=== PATIENT | female | born 1940 | race Caucasian/White ===

== ENCOUNTER 2023-04-20 21:43 | Observation (INO) | payer MEDICARE, BC, SELFPAY ==
[2023-04-20] VITALS (8 sets, daily range): BP systolic 109–120; BP diastolic 52–87; PULSE 67–76; RESP 16–24; TEMP 36.6–36.8; O2SAT 95–100; BMI 26.3
--- NOTE | 2023-04-20 21:44 | CT_ITS ---
We are attempting to reach an attending provider to discuss findings. An addendum with communication details will be sent when the communication is complete. INDICATION: Neuro deficit, acute, stroke suspected EXAMINATION: CT BRAIN - CT Head Stroke Protocol W/O Contrast Injection TECHNIQUE: Multiple axial images were obtained of the head without intravenous contrast. A radiation dose optimization technique was used for this scan. IV Contrast dosage and agent: None. COMPARISON: FINDINGS: BRAIN PARENCHYMA: No intra- or extra-axial hemorrhage. No evidence of acute infarct. No intracranial mass or mass effect. Bilateral white matter microangiopathic ischemic changes. Posterior fossa structures are unremarkable. CSF SPACES: Prominent with atrophy. No hydrocephalus. Basal cisterns are patent. CALVARIUM, SKULL BASE, PARANASAL SINUSES AND MASTOID AIR CELLS: Clear. No discrete lytic or blastic abnormalities. ORBITS: Both globes, extraocular muscles, optic nerves and retrobulbar fat appear unremarkable. CT/STROKE Brain/Head without Cont IMPRESSION: Age-related changes. Electronically Signed: Yohan Kyle DO at 22:07 EDT Reading Location ID and State: [facility] / [place] Tel [phone], Service support ,
--- NOTE | 2023-04-20 21:44 | EKG12_ITS ---
Test Reason : STROKE Blood Pressure : / mmHG Vent. Rate : 063 BPM Atrial Rate : 063 BPM P-R Int : 142 ms QRS Dur : 082 ms QT Int : 432 ms P-R-T Axes : 072 056 043 degrees QTc Int : 442 ms Normal sinus rhythm Normal ECG No previous ECGs available Confirmed by BRUCE QUARLES, CLAIR ([id number]), editorial director SIMI LUCERO ([id number]) on 04/25/2023 10:26:53 AM Referred By: Confirmed By:CLAIR BARRERA MD
--- NOTE | 2023-04-20 21:45 | ED.RN ---
phone call to [facility] at this time
--- NOTE | 2023-04-20 21:46 | ED.VIS.STROK ---
HPI History of Present Illness Chief Complaint: Stroke Alert Narrative Narrative: 82-year-old female with history of TIA presenting with strokelike symptoms. Team was called in the field. Last known well 2109. Patient had slurred speech and left arm numbness. For EMS she had some slurred speech as well. On presentation she has an NIH stroke score of 0. Denies any chest pain or shortness of breath. Family reported to EMS that she was on a blood thinner but they did not get which kind of blood thinner she is on. [facility] Medical History Stroke/cerebrovascular accident Home Medications atorvastatin 40 mg tablet 40 mg PO QHS 04/20/23 [History Last Taken Unknown] clopidogrel 75 mg tablet (Plavix) 75 mg PO DAILY 04/20/23 [History Last Taken Unknown] cyanocobalamin (vitamin B-12) 1,000 mcg/mL injection solution 1,000 mcg IM DAILY 04/20/23 [History Last Taken Unknown] donepezil 10 mg tablet 10 mg PO DAILY 04/20/23 [History Last Taken Unknown] memantine .ROUTE BID 04/20/23 [History Last Taken Unknown] mirtazapine 15 mg tablet 15 mg PO DAILY 04/20/23 [History Last Taken Unknown] Allergy/AdvReac Type Severity Reaction Status Date / Time No Known Allergies Allergy Verified 04/20/23 22:15 Family History (Updated 04/20/23 @ 23:[address] Darren Mercer MD) Other Cancer Prostate cancer Surgical History (Updated 04/20/23 @ 23:[address] Darren Mercer MD) H/O lumpectomy History of appendectomy Social History Smoking Status: Never smoker ROS ROS ED Review of Systems ROS Unobtainable: Denies due to encephalopathy Constitutional Constitutional ED: Denies chills or fever(s) Eyes Eyes: Denies blurry vision or change in vision ENT ENT ED: Denies rhinorrhea Cardiovascular Cardiovascular: Denies chest pain or palpitations Respiratory/Chest Respiratory/Chest: Denies cough or dyspnea Gastrointestinal Gastrointestinal: Denies abdominal pain Genitourinary Genitourinary ED: Denies dysuria or hematuria Musculoskeletal Musculoskeletal: Denies arthralgias Neurologic Neurologic: Reports paresthesias LUE and other Details: Speech, facial EXAM Physical Exam Const Vital Signs: 04/20/23 21:57 04/20/23 21:44 04/20/23 21:44 Temperature 98.3 F Temperature Source Oral Pulse Rate 71 Respiratory Rate 24 H Blood Pressure 120/58 L Blood Pressure Mean 78 Pulse Ox 95 100 Oxygen Delivery Method Room Air Room Air 04/20/23 22:10 04/20/23 21:44 04/20/23 22:30 Temperature 98.1 F Temperature Source Oral Pulse Rate 68 68 76 Respiratory Rate 16 16 16 Blood Pressure 115/57 L 120/80 114/59 L Blood Pressure Mean 76 93 77 Pulse Ox 100 96 Oxygen Delivery Method Room Air Room Air Room Air 04/20/23 23:00 04/20/23 23:00 Temperature 98.1 F 98.1 F Temperature Source Oral Oral Pulse Rate 68 67 Respiratory Rate 16 16 Blood Pressure 120/87 H 120/87 H Blood Pressure Mean 98 98 Pulse Ox 100 99 Oxygen Delivery Method Room Air Room Air Positive well nourished HEENT Reports moist mucous membranes Eyes PERRL and EOMs intact bilaterally Resp normal respiratory effort and clear to auscultation bilaterally Auscultation: Negative for rales, rhonchi or wheezes Cardio Rate: regular rate Neuro oriented x3 and CN's II-XII intact bilaterally Sensorium / Orientation: alert Psych mental status grossly normal NIHSS NIHSS Initial: 1a Level of Consciousness: 0 1b LOC Questions (Score 2 if aphasic/stupor): 0 1c LOC Commands (Only score 1st attempt): 0 2 Best Gaze (If aphasic, use reflexive mvmts.): 0 3 Visual: 0 4 Facial Palsy: 0 5 Motor Arm Right (UN = amputation/fusion): 0 5 Motor Arm Left: 0 6 Motor Leg Right: 0 6 Motor Leg Left: 0 7 Limb ataxia (Only + if out of proportion): 0 8 Sensory (Aphasia/stupor=0 or 1, coma=2): 0 9 Best Language: 0 10 Dysarthria (mute, coma=2, intubated=UN): 0 11 Extinction and Inattention (only scored if +): 0 Total Score: 0 MDM MDM MDM Narrative Medical decision making narrative: 82-year-old female with strokelike symptoms. Her in a stroke scale score is 0 and arrival although she had reported facial droop, slurred speech, left arm numbness. I am not sure which side of her face was drooping at home. Differential includes stroke, TIA, intracranial hemorrhage, dehydration, electrolyte abnormalities, acute coronary syndrome. CBC was obtained to assess white blood cell count, hemoglobin, platelets. BMP to assess renal function electrolytes. High-sensitivity troponin EKG to rule out ischemia or dysrhythmia. Chest x-ray to rule out pneumonia. CT brain and CTA were obtained in the ER. CT brain and CTA were negative. CBC and BMP were normal. INR normal. EKG on my interpretation showed normal sinus rhythm with a ventricular rate of 63 bpm without sign of ischemic change or ectopy on my interpretation. Chest x-ray showed no acute process on my interpretation. Discussed the patient with [facility] neurology and they recommended admission for stroke rule out patient amenable to this. She was given aspirin on admission. Impression: 1. TIA Lab Data Labs: Laboratory Results - last 24 hr 04/20/23 21:50 WBC 6.8 RBC 3.37 L Hgb 10.6 L Hct 32.0 L MCV 95.0 MCH 31.5 MCHC 33.1 RDW Std Deviation 44.6 H RDW Coeff of Carissa 13.0 Plt Count 170 MPV 9.3 Immature Gran % (Auto) 0.300 Neut % (Auto) 57.1 Lymph % (Auto) 29.2 [place] % (Auto) 12.1 H Eos % (Auto) 1.0 Baso % (Auto) 0.3 Absolute Neuts (auto) 3.9 Absolute Lymphs (auto) 1.98 Nucleated RBC % 0 PT 13.7 INR 1.1 APTT 31.2 Sodium 137 Potassium 3.9 Chloride 107 Carbon Dioxide 28.0 Anion Gap 2 L BUN 11 Creatinine 0.62 Estim Creat Clear Calc 32.23 Est GFR (MDRD) Af Amer 118 Est GFR (MDRD) Non-Af 97 BUN/Creatinine Ratio 17.6 Glucose 104 Calcium 8.6 Troponin I High Sens 5 Radiography Diagnostic Testing: Clinical Impression(s) from Imaging Studies Brain CT 04/20/23 21:44 IMPRESSION: Age-related changes. Electronically Signed: Yohan Kyle DO at 22:07 EDT Reading Location ID and State: [facility] / [place] Tel [phone], Service support , ADDENDUM: 04/20/23 2214 IMPRESSION: Age-related changes. N.B. : The above Results were Read Back by Yohan Kyle DO to Bruno Steinberg MD, and understanding confirmed on 04/20/2023 22:07:55 (ET). Electronically Signed: Yohan Kyle DO at 22:07 EDT , Head/Neck CTA 04/20/23 21:50 IMPRESSION: Negative CTA Carotid, and CTA Brain. Electronically Signed: Yohan Kyle DO at 22:22 EDT , ADDENDUM: 04/20/23 2230 IMPRESSION: Negative CTA Carotid, and CTA Brain. N.B. : The above Results were Read Back by Yohan Kyle DO to Bruno Steinberg MD, and understanding confirmed on 04/20/2023 22:23:58 (ET). Electronically Signed: Yohan Kyle DO at 22:22 EDT , Discharge Plan Triage Chief Complaint: Stroke Alert ED Provider: Bruno Steinberg Dx/Rx/DC Orders Primary Care Provider: RIO DUKE
--- NOTE | 2023-04-20 21:50 | CT_ITS ---
We are attempting to reach an attending provider to discuss findings. An addendum with communication details will be sent when the communication is complete. INDICATION: Neuro deficit, acute, stroke suspected EXAMINATION: CTA BRAIN WITH CONTRAST TECHNIQUE: Noncontrast axial images were obtained of the brain. Subsequently, routine carotid CT angiogram protocol was performed without and with IV contrast. In addition, images were obtained of the [place]. NASCET criteria using the distal ICAs for comparison were used for evaluation of stenoses. 3D reconstructions were reviewed. A radiation dose optimization technique was used for this scan. IV Contrast dosage and agent: COMPARISON: FINDINGS: --CTA NECK: AORTIC ARCH AND BRANCHES: Normal anatomy, patent. RIGHT CCA: No occlusion, significant stenosis or dissection. RIGHT ICA: No occlusion, significant stenosis or dissection. LEFT CCA: No occlusion, significant stenosis or dissection. LEFT ICA: No occlusion, significant stenosis or dissection. RIGHT VERTEBRAL ARTERY: No occlusion, significant stenosis or dissection. LEFT VERTEBRAL ARTERY: No occlusion, significant stenosis or dissection. NECK SOFT TISSUES: Unremarkable. --CTA HEAD: --Anterior circulation: ICAs: No significant stenosis at the intracranial/visualized segments. ACAs: No significant stenosis at the visualized segments. ACOM: Present. MCAs: No significant stenosis at the visualized segments. --Posterior circulation: PCOMs: Patent bilaterally. urban renewal manager: No significant stenosis at the visualized segments. Nonvisualization of the right P1 segment. BASILAR ARTERY: No significant stenosis. VERTEBRAL ARTERIES: No significant stenosis at the intradural/visualized segments. No evidence of intracranial aneurysm or vascular malformation. CT/STROKE CTA Head AND Neck W/Con IMPRESSION: Negative CTA Carotid, and CTA Brain. Electronically Signed: Yohan Kyle DO at 22:22 EDT ,
[2023-04-20 22:06] LABS: Absolute Lymphocyte Count 1.98 X10^3/uL (0.83-4.51); Absolute Neutrophil Count 3.9 X10^3/uL (2.0-7.7); Basophil# 0.02 X10^3/uL; Basophil% 0.3 % (0-1); Eosinophil# 0.07 X10^3/uL; Hemoglobin 10.6 g/dL (12.0-15.0); Lymphocyte # 1.98 X10^3/ul (0.83-4.51); Lymphocyte % 29.2 % (19-41); Mean Corp Hgb Conc 33.1 g/dL (32-36); Mean Corpuscular Hgb 31.5 pg (27.0-32.0); Mean Platelet Vol. 9.3 fl (6.2-12.0); Monocyte# 0.82 X10^3/uL; Monocyte% 12.1 % (0-10); NRBC Flagged by Analyzer 0 % (0-5); Neutrophil # 3.87 X10^3/uL (2.7-7.7); Neutrophil % 57.1 % (47-70); Platelet Count 170 K/mm3 (150-450); RBC Distribution Width SD 44.6 fl (35.1-43.9); Red Blood Count 3.37 M/mm3 (4.2-5.4); White Blood Count 6.8 K/mm3 (4.4-11.0)
[2023-04-20 22:19] LABS: International Normalized Ratio 1.1; Prothrombin Time (Protime)PT. 13.7 SECONDS (11.7-14.9)
[2023-04-20 22:20] LABS: Partial Thromboplast Time 31.2 Seconds (24.1-36.2)
[2023-04-20 22:28] LABS: Anion Gap 2 (5-15); BUN 11 mg/dL (7-18); BUN/Creat Ratio 17.6 RATIO (10-20); Calcium,Total 8.6 mg/dL (8.5-10.1); Chloride 107 mmol/L (98-107); Creatinine, Serum 0.62 mg/dL (0.55-1.02); EST Glomerular Filtration Rate 97 mL/min (>60); Est Glom Filt Rate - Afr Amer 118 mL/min (>60); Estimated Creatinine Clearance 32.23 ml/min; Glucose 104 mg/dL (74-106); Potassium 3.9 mmol/L (3.5-5.1); Sodium Level 137 mmol/L (136-145); Troponin-I HS 5 pg/mL (3.0-54.0)
--- NOTE | 2023-04-20 22:50 | RAD_ITS ---
INDICATION: Neuro deficit, acute, stroke suspected EXAMINATION/TECHNIQUE: X-RAY - XR Chest 1 View COMPARISON: FINDINGS: LINES/DEVICES: None. LUNGS: No consolidation, edema or effusion. No pneumothorax. MEDIASTINUM AND CARDIOVASCULAR STRUCTURES: Cardiac silhouette not enlarged. Central airways and mediastinal contour are unremarkable. BONES AND SOFT TISSUES: Unremarkable. RAD/Chest 1 View IMPRESSION: No radiographic evidence of acute cardiopulmonary disease. Electronically Signed: Yohan Kyle DO at 23:53 EDT ,
[2023-04-20] MEDS: Aspirin 81 MG TAB.CHEW 324 MG PO (23:16)
--- NOTE | 2023-04-20 23:16 | PCM.HP.STD ---
HPI - General General Date of Admission: 04/20/23 Date of Service: 04/20/23 Chief Complaint: Strokelike symptoms HPI Narrative MAGDALENA PELAYO, is a 82 F with a significant history of a TIA on Plavix; brain bleed; and dementia who presents to emergency department with strokelike symptoms lasted about 30 to 45-minute before presentation. Enroute to emergency department stroke alert was called. Patient strokelike symptoms included slurry speech; facial droop and left numbness. Also patient had left side weakness where she was leaning towards the left side. Reportedly paramedics saw patient's symptoms. At the emergency department patient NIH was reportedly 0. At the time of hospitalist evaluation patient reported that she still has some numbness to her left. Patient lives partly at [facility] with one of his sons and then partly at [place], [place] with another son who is the medical power of contract mail carrier. Patient's out of State ([place]) physician is Tony Kay (cell phone [phone]). Tony is available for questions and discussions. [facility] Medical History (Updated 04/21/23 @ 00:[address] Darren Mercer MD) Stroke/cerebrovascular accident Home Medications atorvastatin 40 mg tablet 40 mg PO QHS 04/20/23 [History Last Taken Unknown] clopidogrel 75 mg tablet (Plavix) 75 mg PO DAILY 04/20/23 [History Last Taken Unknown] cyanocobalamin (vitamin B-12) 1,000 mcg/mL injection solution 1,000 mcg IM DAILY 04/20/23 [History Last Taken Unknown] donepezil 10 mg tablet 10 mg PO DAILY 04/20/23 [History Last Taken Unknown] memantine .ROUTE BID 04/20/23 [History Last Taken Unknown] mirtazapine 15 mg tablet 15 mg PO DAILY 04/20/23 [History Last Taken Unknown] Allergy/AdvReac Type Severity Reaction Status Date / Time No Known Allergies Allergy Verified 04/20/23 22:15 Family History (Updated 04/20/23 @ 23:[address] Darren Mercer MD) Other Cancer Prostate cancer Surgical History (Updated 04/20/23 @ 23:[address] Darren Mercer MD) H/O lumpectomy History of appendectomy Social History Smoking Status: Never smoker ROS ROS Narrative Pertinent positives and pertinent negatives as noted in HPI. All other systems were reviewed and are negative Vital Signs Vital Signs Vital Signs: 04/20/23 21:57 04/20/23 21:44 04/20/23 21:44 Temperature 98.3 F Temperature Source Oral Pulse Rate 71 Respiratory Rate 24 H Blood Pressure 120/58 L Blood Pressure Mean 78 Pulse Ox 95 100 Oxygen Delivery Method Room Air Room Air 04/20/23 22:10 04/20/23 21:44 04/20/23 22:30 Temperature 98.1 F Temperature Source Oral Pulse Rate 68 68 76 Respiratory Rate 16 16 16 Blood Pressure 115/57 L 120/80 114/59 L Blood Pressure Mean 76 93 77 Pulse Ox 100 96 Oxygen Delivery Method Room Air Room Air Room Air 04/20/23 23:00 04/20/23 23:00 Temperature 98.1 F 98.1 F Temperature Source Oral Oral Pulse Rate 68 67 Respiratory Rate 16 16 Blood Pressure 120/87 H 120/87 H Blood Pressure Mean 98 98 Pulse Ox 100 99 Oxygen Delivery Method Room Air Room Air Weight Weight: 61.1 kg Body Mass Index (BMI) 26.3 Physical Exam Narrative Physical exam: General: Well-nourished, well-developed. Head: Normocephalic, atraumatic, no tenderness Eyes: Vision is grossly intact. EOMI ENT, no trauma, moist mucous membranes, no rhinorrhea Neck: Nontender, No thyromegaly. CVS: Regular rate and rhythm. S1-S2 present. No murmur, gallop or rub. Respiratory : clear to auscultation bilaterally, chest wall nontender Abdomen: Soft, nontender, nondistended, normal bowel sounds, no masses : Deferred Back: Nontender, no CVA tenderness. Extremities: Nontender full range of motion, no trauma Skin: Normal color, no trauma, abrasions Neuro: Alert, oriented, cranial nerves II through XII grossly intact. Change in sensation in left arm compared to right. No change in sensation of bilateral lower extremities. Strength in all upper and lower extremities 5 out of 5 except strength in left upper extremity 4 out of 5. No dysmetria with [id number] test or quiroga to heel test. Psychiatry: Normal mood. Normal affect. Not depressed. Not anxious. Results Lab / Micro Data 04/20/23 21:50 04/20/23 21:50 Labs: Laboratory Results - last 24 hr 04/20/23 21:50: WBC 6.8, RBC 3.37 L, Hgb 10.6 L, Hct 32.0 L, MCV 95.0, MCH 31.5, MCHC 33.1, RDW Std Deviation 44.6 H, RDW Coeff of Carissa 13.0, Plt Count 170, MPV 9.3, Immature Gran % (Auto) 0.300, Neut % (Auto) 57.1, Lymph % (Auto) 29.2, [place] % (Auto) 12.1 H, Eos % (Auto) 1.0, Baso % (Auto) 0.3, Absolute Neuts (auto) 3.9, Absolute Lymphs (auto) 1.98, Nucleated RBC % 0, PT 13.7, INR 1.1, APTT 31.2, Sodium 137, Potassium 3.9, Chloride 107, Carbon Dioxide 28.0, Anion Gap 2 L, BUN 11, Creatinine 0.62, Estim Creat Clear Calc 32.23, Est GFR (MDRD) Af Amer 118, Est GFR (MDRD) Non-Af 97, BUN/Creatinine Ratio 17.6, Glucose 104, Calcium 8.6, Troponin I High Sens [address] 04/20/23 21:44 IMPRESSION: Age-related changes. Electronically Signed: Yohan Kyle DO at 22:07 EDT Reading Location ID and State: [facility] / [place] Tel [phone], Service support , ADDENDUM: 04/20/23 2214 IMPRESSION: Age-related changes. N.B. : The above Results were Read Back by Yohan Kyle DO to Bruon Steinberg MD, and understanding confirmed on 04/20/2023 22:07:55 (ET). Electronically Signed: Yohan Kyle DO at 22:07 EDT , Head/Neck CTA 04/20/23 21:50 IMPRESSION: Negative CTA Carotid, and CTA Brain. Electronically Signed: Yohan Kyle DO at 22:22 EDT , ADDENDUM: 04/20/232229 IMPRESSION: Negative CTA Carotid, and CTA Brain. N.B. : The above Results were Read Back by Yohan Kyle DO to Bruno Steinberg MD, and understanding confirmed on 04/20/2023 22:23:58 (ET). Electronically Signed: Yohan Kyle DO at 22:22 EDT , Assessment & Plan Assessment/Plan (1) Stroke-like symptoms: PLAN: Plan Strokelike symptoms NINDS NIH Scale ordered Impression of head CT by radiology: Age-related changes. Upon my personal head CT image independent interpretation: I agree with radiologist interpretation Of the patient with negative CTA carotid and CTA brain. Lipid profile and A1c ordered. Physical therapy, and occupational therapy to work with patient. N.p.o. until bedside swallow eval. Received full dose aspirin at the emergency department. We will continue patient on her home Plavix and on high intensity statin Lipitor 40 mg p.o. nightly daily. Permissive hypertension. Control blood pressure with labetalol for systolic blood pressure of more than 220 or diastolic blood pressure of more than 120. MRI of head/brain ordered. Echocardiogram ordered. Time spent in the patient's overall evaluation,decision-making process, review of diagnostic data, adjustment of management, discussion with other providers, nursing nursing and ancillary staff involved in patient's care documentation, 45 minutes. Charges/Coding Visit Charges Inpatient E&M: 15172 Init Hosp L2
--- NOTE | 2023-04-21 00:06 | MRI_ITS ---
HISTORY: CVA. TECHNIQUE: Multiplanar and multisequence MR images of the brain were obtained without contrast. 274 images. COMPARISON: CT prior day. FINDINGS: BRAIN PARENCHYMA: Multiple foci and small zones of increased T2 FLAIR signal in the bilateral cerebral white matter. No abnormal focus of restricted diffusion. No acute intracranial hemorrhage identified. CSF SPACES: Moderate generalized volume loss. No significant midline shift or other mass effect.No extra-axial fluid collection. VASCULAR SYSTEM: Major intracranial flow voids are maintained. PARANASAL SINUSES AND MASTOID AIR CELLS: No significant air fluid levels. ORBITS: Bilateral lens resections. 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 MRI/Brain without Contrast IMPRESSION: No evidence for acute infarct. Moderate chronic involutional and matter changes. Electronically Signed: Jeannine Paulson MD at 10:47 EDT ,
--- NOTE | 2023-04-21 00:06 | ECHOD_ITS ---
Reason For Study: TIA/CVA Procedure This was a 2D Doppler, Color Flow transthoracic echocardiogram. Exam performed portable in patient room. Left Ventricle Normal LV size. Left ventricular systolic function is normal. The estimated ejection fraction is 65 %. Stage 1 diastolic dysfunction. Right Ventricle Normal RV size. Normal systolic function. Atria Normal left atrium. Normal right atrium. Bubble contrast study negative for right to left interatrial shunt. Mitral Valve Normal mitral valve. Trivial mitral valve insufficiency. Tricuspid Valve Normal tricuspid valve. Mild tricuspid valve insufficiency. Pulmonary artery systolic pressure is 22 mmHg. Aortic Valve Normal aortic valve. Trisinus/trileaflet aortic valve. Mild (1+) aortic valve insufficiency. Pulmonic Valve Normal pulmonic valve. Great Vessels Normal aortic root. The pulmonary artery is normal size. Normal inferior vena cava. Pericardium/Pleural No pericardial effusion. Medication Performed a rapid injection of agitated mix of 9 cc saline and 1cc air to assess for atrial septal defect. MMode/2D Measurements & Calculations LVIDd: 4.5 cm IVSd: 0.68 cm Ao root diam: 2.8 cm LVIDs: 2.4 cm LVPWd: 0.79 cm RVDd: 2.4 cm FS: 46.3 % LAV(MOD-bp): 15.0 ml LVAd ap4: 17.3 cm2 SV(MOD-sp4): 30.1 ml LAV(MOD-bp) Indexed: 9.8 ml/m2 LVLd ap4: 5.6 cm LAV(MOD-sp2): 21.4 ml EDV(MOD-sp4): 43.8 ml LAV(MOD-sp4): 10.1 ml EDV(sp4-el): 45.3 ml LVAs ap4: 8.7 cm2 LVLs ap4: 4.4 cm ESV(MOD-sp4): 13.7 ml ESV(sp4-el): 14.4 ml EF(MOD-sp4): 68.6 % EF(sp4-el): 68.2 % SV(sp4-el): 30.9 ml LA A4 area: 6.6 cm2 LA dimension(2D): 2.4 cm RA A4 area: 7.9 cm2 Time Measurements MV dec time: 0.27 sec Doppler Measurements & Calculations MV E max alberto: 72.0 cm/sec Lat Peak E' Alberto: 7.4 cm/sec Med Peak E' Alberto: 7.9 cm/sec MV A max alberto: 74.6 cm/sec E/E' lat: 9.7 E/E' med: 9.1 MV E/A: 0.97 MV dec slope: 269.8 cm/sec2 Ao V2 max: 141.8 cm/sec LV V1 max: 96.2 cm/sec Ao max P.0 mmHg LV V1 max P.7 mmHg Ao V2 mean: 107.7 cm/sec Ao mean P.1 mmHg Ao V2 VTI: 32.8 cm PA V2 max: 79.7 cm/sec TR max alberto: 218.4 cm/sec TR max P.1 mmHg ECHO/Echo Complete Interpretation Summary Normal LV size. Left ventricular systolic function is normal. The estimated ejection fraction is 65 %. Stage 1 diastolic dysfunction. Ordering Physician: Darren Mercer Performed By: Iva Banda, RDCS, RVT
[2023-04-21 00:08] VITALS: BMI 24.7
[2023-04-21 00:40] VITALS: BMI 24.7
[2023-04-21 01:50] VITALS: O2SAT 98
[2023-04-21 03:52] VITALS: BP 110/82; PULSE 60; RESP 16; TEMP 36.4; O2SAT 99
[2023-04-21 04:18] VITALS: BMI 24.7
[2023-04-21 07:46] VITALS: BP 133/60; PULSE 69; RESP 16; TEMP 36.4; O2SAT 100
[2023-04-21 07:59] LABS: Absolute Lymphocyte Count 1.68 X10^3/uL (0.83-4.51); Basophil# 0.03 X10^3/uL; Basophil% 0.5 % (0-1); Eosinophil# 0.04 X10^3/uL; Eosinophils% 0.6 % (0-5); Hematocrit 34.9 % (37-47); Hemoglobin 11.6 g/dL (12.0-15.0); Lymphocyte # 1.68 X10^3/ul (0.83-4.51); Lymphocyte % 26.7 % (19-41); Mean Corp Hgb Conc 33.2 g/dL (32-36); Mean Corpuscular Hgb 31.7 pg (27.0-32.0); Mean Corpuscular Volume 95.4 fL (81-99); Mean Platelet Vol. 9.9 fl (6.2-12.0); Monocyte# 0.57 X10^3/uL; NRBC Flagged by Analyzer 0 % (0-5); Neutrophil # 3.97 X10^3/uL (2.7-7.7); Platelet Count 181 K/mm3 (150-450); RBC Distribution Width CV 12.8 % (11.6-14.6); RBC Distribution Width SD 44.6 fl (35.1-43.9); Red Blood Count 3.66 M/mm3 (4.2-5.4); White Blood Count 6.3 K/mm3 (4.4-11.0)
--- NOTE | 2023-04-21 08:00 | PN.HOSP_ITS ---
Reason for Visit Reason for Visit: Diagnoses Unspecified symptoms and signs involving the nervous system (04/20/23) Subjective Subjective Denies any complaints. Objective Data Objective Data Vital Signs: Vital Signs Temp Pulse Resp BP Pulse Ox O2 Del Method 36.4 C L 69 16 133/60 H 100 Room Air 04/21/23 07:46 04/21/23 07:46 04/21/23 07:46 04/21/23 07:46 04/21/23 07:46 04/21/23 07:46 Oxygen Delivery Method Room Air Weight: 57.334 kg Body Mass Index (BMI) 24.7 Lab / Micro Data 04/21/23 06:45 04/21/23 06:45 Labs: Laboratory Results - last 24 hr 04/20/23 21:50: WBC 6.8, RBC 3.37 L, Hgb 10.6 L, Hct 32.0 L, MCV 95.0, MCH 31.5, MCHC 33.1, RDW Std Deviation 44.6 H, RDW Coeff of [place] 13.0, Plt Count 170, MPV 9.3, Immature Gran % (Auto) 0.300, Neut % (Auto) 57.1, Lymph % (Auto) 29.2, [place] % (Auto) 12.1 H, Eos % (Auto) 1.0, Baso % (Auto) 0.3, Absolute Neuts (auto) 3.9, Absolute Lymphs (auto) 1.98, Nucleated RBC % 0, PT 13.7, INR 1.1, APTT 31.2, Sodium 137, Potassium 3.9, Chloride 107, Carbon Dioxide 28.0, Anion Gap 2 L, BUN 11, Creatinine 0.62, Estim Creat Clear Calc 32.23, Est GFR (MDRD) Af Amer 118, Est GFR (MDRD) Non-Af 97, BUN/Creatinine Ratio 17.6, Glucose 104, Calcium 8.6, Troponin I High Sens 5 04/21/23 06:45: WBC 6.3, RBC 3.66 L, Hgb 11.6 L, Hct 34.9 L, MCV 95.4, MCH 31.7, MCHC 33.2, RDW Std Deviation 44.6 H, RDW Coeff of [place] 12.8, Plt Count 181, MPV 9.9, Immature Gran % (Auto) 0.200, Neut % (Auto) 63.0, Lymph % (Auto) 26.7, [place] % (Auto) 9.0, Eos % (Auto) 0.6, Baso % (Auto) 0.5, Absolute Neuts (auto) 4.0, Absolute Lymphs (auto) 1.68, Nucleated RBC % 0 Radiography Diagnostic Testing: Radiology Impression Brain CT 04/20/23 21:44 IMPRESSION: Age-related changes. Electronically Signed: Yohan Kyle DO at 22:07 EDT , ADDENDUM: 04/20/23 2214 IMPRESSION: Age-related changes. N.B. : The above Results were Read Back by Yohan Kyle DO to Bruno Steinberg MD, and understanding confirmed on 04/20/2023 22:07:55 (ET). Electronically Signed: Yohan Kyle DO at 22:07 EDT , Head/Neck CTA 04/20/23 21:50 IMPRESSION: Negative CTA Carotid, and CTA Brain. Electronically Signed: Yohan Kyle DO at 22:22 EDT , ADDENDUM: 04/20/23 2230 IMPRESSION: Negative CTA Carotid, and CTA Brain. N.B. : The above Results were Read Back by Yohan Kyle DO to Bruno Steinberg MD, and understanding confirmed on 04/20/2023 22:23:58 (ET). Electronically Signed: Yohan Kyle DO at 22:22 EDT , Chest X-Ray 04/20/23 22:50 IMPRESSION: No radiographic evidence of acute cardiopulmonary disease. Electronically Signed: Yohan Kyle DO at 23:53 EDT Reading Location ID and State: [facility] / [place] Tel [phone], Service support , Physical Exam Resp normal respiratory effort, no retractions, no use of accessory muscles and clear to auscultation bilaterally Cardio regular rate, regular rhythm, S1 normal heart sound and S2 normal heart sound GI normal to inspection, nondistended, normoactive bowel sounds, soft to palpation and non-tender Extremity normal to inspection Neuro oriented x3, CN's II-XII intact bilaterally, moves all extremities and no focal motor deficits Assessment & Plan Assessment/Plan (1) Stroke-like symptoms: PLAN: Pt w slurred speech, facial droop and left paresthesia MRI brain shoed no acute infarct. Echo shows an EF of 65% Continue clopidogrel and atorvastatin PT OT Add ASA for 3 weeks. Event monitor Outpt follow up with neurology. PLAN: Plan Dementia: continue donepezil Charges/Coding Visit Charges Inpatient E&M: 88672 Subs Hosp L2
[2023-04-21 08:18] LABS: Anion Gap 2 (5-15); BUN 9 mg/dL (7-18); BUN/Creat Ratio 15.1 RATIO (10-20); Calcium,Total 8.8 mg/dL (8.5-10.1); Chloride 110 mmol/L (98-107); Cholesterol 92 mg/dL (200); EST Glomerular Filtration Rate 103 mL/min (>60); Est Glom Filt Rate - Afr Amer 125 mL/min (>60); Estimated Creatinine Clearance 32.23 ml/min; Glucose 76 mg/dL (74-106); High Density Lipoprotein 63 mg/dL; Sodium Level 142 mmol/L (136-145); Triglycerides 32 mg/dL; Very Low Density Lipoprotein 6 mg/dL (5-40)
[2023-04-21 08:34] LABS: Hemoglobin A1c 5.2 % (3.8-5.6)
[2023-04-21 10:55] VITALS: BP 127/58; PULSE 72; RESP 16; TEMP 36.4; O2SAT 96
[2023-04-21] MEDS: Clopidogrel Bisulfate 75 MG Tablet PO (11:06)
[2023-04-21 11:49] VITALS: BMI 24.7
--- NOTE | 2023-04-21 13:42 | DS.PCM_ITS ---
Providers Date of Admission: 04/20/23 Primary Care Physician: RIO DUKE Reason For Visit: TIA Diagnosis Discharge Diagnosis (1) Stroke-like symptoms: Status: Acute Code(s): R29.90 - Unspecified symptoms and signs involving the nervous system Plan: Pt w slurred speech, facial droop and left paresthesia. There was noted that the patient felt diaphoretic and was unsteady for moment of time. Dorris very diz zy as well. Not sure if the patient did have a TIA or if this was an acute episode of BPPV. Patient primarily resides in [place] and her primary care doctor is in [place]. What I have recommended is that the patient take aspirin for 3 weeks and then to follow-up with primary care doctor and follow-up with a neurologist. If neurologist feels that this may have been a TIA then she can have additional testing such as a 30-day event monitor. I will have the patient have a prescription for as needed meclizine in case this happens again. Some of the weakness the patient may have experienced may have been due to the dizziness and disequilibrium that she may have experienced if this was due to BPPV. MRI brain shoed no acute infarct. Echo shows an EF of 65% Continue clopidogrel and atorvastatin PT OT Add ASA for 3 weeks. Plan Dementia: continue donepezil Medications at Discharge Home Medications atorvastatin 40 mg tablet 40 mg PO QHS 04/20/23 clopidogrel 75 mg tablet (Plavix) 75 mg PO DAILY 04/20/23 donepezil 10 mg tablet 10 mg PO QHS 04/20/23 memantine .ROUTE BID 04/20/23 mirtazapine 15 mg tablet 15 mg PO QHS 04/20/23 alendronate 70 mg tablet 70 mg PO QWEEK 04/21/23 aspirin 81 mg chewable tablet 81 mg PO BREAKFAST #0 tabs 04/21/23 cyanocobalamin (vitamin B-12) 1,000 mcg tablet (Vitamin B-12) 1,000 mcg PO DAILY 04/21/23 meclizine 12.5 mg tablet 12.5 mg PO TID PRN dizziness #10 tabs 04/21/23 Hospital Course Operations None Procedures 2-D Echocardiogram Summary of Care Provided Minutes Spent on Discharge: 40 Weight / BMI Weight Weight: 57.334 kg Body Mass Index (BMI) 24.7 ABG / Lab / Microbiology Data 04/21/23 06:45 04/21/23 06:45 Laboratory: Laboratory Results - last 24 hr 04/20/23 21:50: WBC 6.8, RBC 3.37 L, Hgb 10.6 L, Hct 32.0 L, MCV 95.0, MCH 31.5, MCHC 33.1, RDW Std Deviation 44.6 H, RDW Coeff of [place]issa 13.0, Plt Count 170, MPV 9.3, Immature Gran % (Auto) 0.300, Neut % (Auto) 57.1, Lymph % (Auto) 29.2, [place] % (Auto) 12.1 H, Eos % (Auto) 1.0, Baso % (Auto) 0.3, Absolute Neuts (auto) 3.9, Absolute Lymphs (auto) 1.98, Nucleated RBC % 0, PT 13.7, INR 1.1, APTT 31.2, Sodium 137, Potassium 3.9, Chloride 107, Carbon Dioxide 28.0, Anion Gap 2 L, BUN 11, Creatinine 0.62, Estim Creat Clear Calc 32.23, Est GFR (MDRD) Af Amer 118, Est GFR (MDRD) Non-Af 97, BUN/Creatinine Ratio 17.6, Glucose 104, Calcium 8.6, Troponin I High Sens 5 04/21/23 06:45: WBC 6.3, RBC 3.66 L, Hgb 11.6 L, Hct 34.9 L, MCV 95.4, MCH 31.7, MCHC 33.2, RDW Std Deviation 44.6 H, RDW Coeff of [place]issa 12.8, Plt Count 181, MPV 9.9, Immature Gran % (Auto) 0.200, Neut % (Auto) 63.0, Lymph % (Auto) 26.7, [place] % (Auto) 9.0, Eos % (Auto) 0.6, Baso % (Auto) 0.5, Absolute Neuts (auto) 4.0, Absolute Lymphs (auto) 1.68, Nucleated RBC % 0, Sodium 142, Potassium 4.0, Chloride 110 H, Carbon Dioxide 30.0, Anion Gap 2 L, BUN 9, Creatinine 0.60, Estim Creat Clear Calc 32.23, Est GFR (MDRD) Af Amer 125, Est GFR (MDRD) Non-Af 103, BUN/Creatinine Ratio 15.1, Glucose 76, Hemoglobin A1c 5.2, Calcium 8.8, Triglycerides 32, Cholesterol 92, LDL Cholesterol 23, VLDL Cholesterol 6, HDL Cholesterol 63 Radiography Diagnostic Testing: Radiology Impression Brain CT 04/20/23 21:44 IMPRESSION: Age-related changes. Electronically Signed: Yohan Kyle DO at 22:07 EDT , ADDENDUM: 04/20/23 2214 IMPRESSION: Age-related changes. N.B. : The above Results were Read Back by Yohan Kyle DO to Bruno Steinberg MD, and understanding confirmed on 04/20/2023 22:07:55 (ET). Electronically Signed: Yohan Kyle DO at 22:07 EDT , Head/Neck CTA 04/20/23 21:50 IMPRESSION: Negative CTA Carotid, and CTA Brain. Electronically Signed: Yohan Kyle DO at 22:22 EDT , ADDENDUM: 04/20/23 2230 IMPRESSION: Negative CTA Carotid, and CTA Brain. N.B. : The above Results were Read Back by Yohan Kyle DO to Bruno Steinberg MD, and understanding confirmed on 04/20/2023 22:23:58 (ET). Electronically Signed: Yohan Kyle DO at 22:22 EDT , Chest X-Ray 04/20/23 22:50 IMPRESSION: No radiographic evidence of acute cardiopulmonary disease. Electronically Signed: Yohan Kyle DO at 23:53 EDT , Brain MRI 04/21/23 00:06 IMPRESSION: No evidence for acute infarct. Moderate chronic involutional and matter changes. Electronically Signed: Jeannine Paulson MD at 10:47 EDT Reading Location ID and State: [facility] / [place] Tel , Service support , Echocardiogram 04/21/23 00:06 Interpretation Summary Normal LV size. Left ventricular systolic function is normal. The estimated ejection fraction is 65 %. Stage 1 diastolic dysfunction. Ordering Physician: Darren Mercer Performed By: Iva Banda, MICHAEL, RVT D/C Instructions Discharge Diet: Low fat / Low cholesterol Call your doctor if you observe: - (Unilateral weakness.) Meaningful Use Info Meaningful Use Diagnoses (Choose all that apply): None applicable Discharge Plan Admission Admit Date/Time: 04/20/23 23:08 Primary Reason for Your Visit: Possible TIA Attending Provider: Lorne Bhatt Primary Care Provider: RIO DUKE Consulting Providers: Darren Mercer Instructions Additional Instructions / Restrictions: You have symptoms that were concerning for TIA (also known as transient ischemic attack, 'mini stroke.) But your symptoms are also concerning that you may have had vertigo (also known in the medical field as benign paroxysmal positional vertigo). Your MRI of your brain was normal and your echocardiogram of your heart was also normal. I recommend that you take aspirin for 3 weeks and then stop. Follow-up your primary care doctor when you get back to [place] and call to see if he can get to see a neurologist by time to get back to [place] as well. If you have recurrent symptoms please notify your physician or return to the emergency room. Discharge Orders/Prescriptions Prescriptions: New aspirin 81 mg Tablet,Chewable 81 mg PO BREAKFAST Qty: 0 0RF Rx Instructions: for 3 weeks, then stop. meclizine 12.5 mg tablet 12.5 mg PO TID PRN (Reason: dizziness) Qty: 10 0RF Continued clopidogrel [Plavix] 75 mg tablet 75 mg PO DAILY memantine .ROUTE BID atorvastatin 40 mg tablet 40 mg PO QHS donepezil 10 mg tablet 10 mg PO QHS mirtazapine 15 mg tablet 15 mg PO QHS cyanocobalamin (vitamin B-12) [Vitamin B-12] 1,000 mcg tablet 1,000 mcg PO DAILY alendronate 70 mg tablet 70 mg PO QWEEK Referrals / Follow Up: RIO DUKE [Daksha] [facility] Doctor,Out of [Non-Staff] - Disposition Disposition (needs filled in before D/C Order can be placed): Home, Self Care Charges/Coding Visit Charges Inpatient E&M: 19116 Disch Hosp >30min
== END 2023-04-21 13:47 | disposition home or self-care (01) ==
LOC: ED 22:48 → PCU 23:23
PROVIDERS: Admitting Provider Hospitalist; Emergency Provider Student in an Organized Health Care Education/Training Program
DX: R47.81 Slurred speech (principal); F03.90 Unspecified dementia, unspecified severity, without behavioral disturbance, psychotic disturbance, mood disturbance, and anxiety; R29.810 Facial weakness; R20.2 Paresthesia of skin; Z79.899 Other long term (current) drug therapy; Z79.02 Long term (current) use of antithrombotics/antiplatelets; Z79.82 Long term (current) use of aspirin; I08.3 Combined rheumatic disorders of mitral, aortic and tricuspid valves; R20.0 Anesthesia of skin; Z86.73 Personal history of transient ischemic attack (TIA), and cerebral infarction without residual deficits; R29.90 Unspecified symptoms and signs involving the nervous system; R53.1 Weakness
CPT/HCPCS: 36415; 70450; 70496; 70498; 70551; 71045; 80048; 80061; 83036; 84484; 85025; 85610; 85730; 93005; 93306; 94762; 97161; 97165; 99221; 99285; Q9967; A4216; G0378

== ENCOUNTER 2023-06-17 11:53 | Emergency (ER) | payer MEDICARE, BC, SELFPAY ==
[2023-06-17 11:54] VITALS: BP 117/96; PULSE 70; RESP 18; TEMP 36.1; O2SAT 97; BMI 26.0
[2023-06-17 12:04] VITALS: BP 104/80; PULSE 79; RESP 18; O2SAT 99
--- NOTE | 2023-06-17 12:09 | EKG12_ITS ---
Test Reason : HEADACHE/ARM PAIN Blood Pressure : / mmHG Vent. Rate : 065 BPM Atrial Rate : 065 BPM P-R Int : 108 ms QRS Dur : 078 ms QT Int : 422 ms P-R-T Axes : 085 073 050 degrees QTc Int : 438 ms Sinus rhythm with short [place] Otherwise normal ECG Confirmed by BRUCE QUARLES, CLAIR ([id number]), supervising film or videotape editor SHANTE BYRNE ([id number]) on 06/26/2023 2:11:33 PM Referred By: Confirmed By:CLAIR BARRERA MD
--- NOTE | 2023-06-17 12:12 | RAD_ITS ---
STUDY: X-RAY - LEFT HUMERUS REASON FOR EXAM: Female, 82 years old. pain TECHNIQUE: 2 view(s) of the humerus. COMPARISON: None. FINDINGS: Normal visualized humerus. There is no demonstrated fracture or osseous destructive process. 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 There is no demonstrated soft tissue abnormality. RAD/Humerus min 2 Views IMPRESSION: Normal x-ray examination of the humerus. Electronically Signed: Fer Ballard MD at 13:10 EST ,
--- NOTE | 2023-06-17 12:12 | CT_ITS ---
STUDY: CTA HEAD AND NECK WITH CONTRAST REASON FOR EXAM: Female, 82 years old. stroke like symptoms RADIATION DOSAGE (If Supplied By Facility): CTDIvol = ( 22.63 ) mGy, DLP = ( 2038.09 ) mGycm TECHNIQUE: CT angiography was performed with a multi-detector CT scanner. Data acquisition was obtained from the skull base through the vertex following intravenous administration of IV 100mL Isovue-370. MIP images were reconstructed from the axial data set. Post-processing of the angiographic images was performed, with multiplanar reformation and 3D reconstruction. Individualized dose optimization techniques were used for this CT. COMPARISON: 04/20/2023 FINDINGS: Normal bilateral petrous carotid arteries. Normal right cavernous carotid artery with a normal supraclinoid bifurcation. Normal left cavernous carotid artery with a normal supraclinoid bifurcation. Normal right A1 segments of the anterior cerebral artery. Normal left A1 segments of the anterior cerebral artery. Normal intact anterior communicating artery (ACOM). Normal bilateral A2 segments of the anterior cerebral arteries. Normal right M1 and M2 segments of the middle cerebral arteries, with a normal M1 bifurcation. Normal left M1 and M2 segments of the middle cerebral arteries, with a normal M1 bifurcation. Normal right posterior communicating artery (PCOM). There is a persistent origin of the left posterior cerebral artery with absence of the posterior communicating artery (PCOM). Normal bilateral vertebral arteries. Normal basilar artery with a normal basilar bifurcation. The visualized bilateral superior cerebellar (SCA) arteries are normal. Normal bilateral P1, P2 and visualized P3 segments of the posterior cerebral arteries. There is no demonstrated aneurysm of the [place]. There is no demonstrated abnormality of the visualized brain. AORTIC ARCH: Normal visualized aortic arch. Normal origins of the brachiocephalic, left common carotid, and left subclavian arteries. RIGHT CAROTID ARTERIES: Normal right common carotid artery (CCA). Normal right common carotid bulb. Normal origin of the right internal carotid (ICA) artery without a hemodynamically significant stenosis. Normal visualized cervical portion of the right internal carotid artery. Normal origin of the right external carotid artery (ECA). LEFT CAROTID ARTERIES: Normal left common carotid artery (CCA). Normal left common carotid bulb. Normal origin of the left internal carotid (ICA) artery without a hemodynamically significant stenosis. Normal visualized cervical portion of the left internal carotid artery. Normal origin of the left external carotid artery (ECA). VERTEBRAL ARTERIES: Normal bilateral vertebral arteries. CT/CTA Head AND Neck W/ Contrast IMPRESSION: Normal CTA Head and neck with contrast. Electronically Signed: Fer Ballard MD at 14:05 [facility] ,
--- NOTE | 2023-06-17 12:12 | CT_ITS ---
STUDY: CTA CHEST REASON FOR EXAM: Female, 82 years old. pain RADIATION DOSAGE (If Supplied By Facility): CTDIvol = ( 22.63 ) mGy, DLP = ( 2038.09 ) mGycm TECHNIQUE: The examination was performed with the intravenous administration of IV 100mL Isovue-370. Post-processing of the angiographic images was performed, with multiplanar reformation and 3D reconstruction. Individualized dose optimization techniques were used for this CT. COMPARISON: None. FINDINGS: Normal enhancement of the main pulmonary artery and right and left pulmonary arteries. Normal enhancement of the bilateral peripheral pulmonary arteries. There is no demonstrated pulmonary embolism. Normal thoracic aorta and visualized great vessels. There is no demonstrated aortic dissection. Normal heart and pericardium. Normal mediastinum. Normal hilar regions. Normal visualized trachea and bronchi. The lungs are well expanded. Normal pulmonary parenchyma. Normal pleura. Normal chest wall structures. Normal osseous structures. Status post cholecystectomy. CT/CTA Chest W/WO Contrast IMPRESSION: Normal CTA chest examination, without a demonstrated pulmonary embolism or arterial dissection. Electronically Signed: Fer Ballard MD at 13:50 EST ,
--- NOTE | 2023-06-17 12:12 | RAD_ITS ---
STUDY: X-RAY - LEFT RADIUS AND ULNA REASON FOR EXAM: Female, 82 years old. pain TECHNIQUE: 2 view(s) of the forearm. COMPARISON: None. FINDINGS: There is no demonstrated soft tissue swelling. Normal visualized radius. Normal visualized ulna. RAD/Forearm 2 Views IMPRESSION: Normal x-ray examination of the radius and ulna. Electronically Signed: Fer Ballard MD at 13:11 EST ,
--- NOTE | 2023-06-17 12:15 | EDS_ITS ---
HPI History of Present Illness Chief Complaint: Upper Extremity Injury Detail of Chief Complaint: Left arm pain, shaking, slurred speech Informant: patient and family Onset/Context/Timing Onset: Today Narrative Narrative: Patient presents secondary to left arm pain, shaking, slurred speech. Patient has a history of dementia and much history is provided by son at bedside. Son states she woke up this morning complaining of some left arm pain and asked for some aspirin or Advil. She was given a dose of Advil. Son went to run some errands when his called stating that she needed him to come home immediately. His mother had tried to get up and lost her balance falling onto the sofa. She was in severe pain, shaking, and had slurred speech. They do not believe there was any injury from the fall. Son states he returned back to the house the same time EMS arrived. He states that she was pale and sweaty and was quite uncomfortable. She would have shaking noted throughout her body. EMS states they did not know any focal neurologic findings. Patient was admitted to the hospital in April with an episode of slurred speech and facial droop. Her CTA and MRIs were negative at that time. She is already on Plavix and atorvastatin. She was put on aspirin for 3 weeks and was to follow-up with her physician. [facility] Medical History Dementia Stroke/cerebrovascular accident Home Medications atorvastatin 40 mg tablet 40 mg PO QHS 04/20/23 [History Last Taken Unknown] clopidogrel 75 mg tablet (Plavix) 75 mg PO DAILY 04/20/23 [History Last Taken Unknown] donepezil 10 mg tablet 10 mg PO QHS 04/20/23 [History Last Taken Unknown] memantine .ROUTE BID 04/20/23 [History Last Taken Unknown] mirtazapine 15 mg tablet 15 mg PO QHS 04/20/23 [History Last Taken Unknown] alendronate 70 mg tablet 70 mg PO QWEEK 04/21/23 [History Last Taken 04/14/23] aspirin 81 mg chewable tablet 81 mg PO BREAKFAST #0 tabs 04/21/23 [Rx Last Taken Unknown] cyanocobalamin (vitamin B-12) 1,000 mcg tablet (Vitamin B-12) 1,000 mcg PO DAILY 04/21/23 [History Last Taken Unknown] meclizine 12.5 mg tablet 12.5 mg PO TID PRN dizziness #10 tabs 04/21/23 [Rx Last Taken Unknown] Allergy/AdvReac Type Severity Reaction Status Date / Time No Known Allergies Allergy Verified 04/20/23 22:15 Family History Other Cancer Prostate cancer Surgical History H/O lumpectomy History of appendectomy Social History Smoking Status: Never smoker ROS ROS ED Constitutional Constitutional ED: Denies chills or fever(s) Eyes Eyes: Denies change in vision ENT ENT ED: Denies rhinorrhea or sore throat Cardiovascular Cardiovascular: Denies chest pain or palpitations Respiratory/Chest Respiratory/Chest: Denies cough or dyspnea Gastrointestinal Gastrointestinal: Denies abdominal pain, nausea or vomiting Musculoskeletal Musculoskeletal: Reports extremity pain; Denies back pain Integumentary Denies Abrasions or rash Neurologic Neurologic: Reports headache(s); Denies weakness Psychiatric Psychiatric: Reports anxiety; Denies depression Allergic/Immunologic Allergic/Immunologic ED: Denies lip swelling or urticaria EXAM Physical Exam Const Vital Signs: 06/17/23 11:54 06/17/23 12:04 Temperature 97.0 F L Temperature Source Temporal Pulse Rate 70 79 Respiratory Rate 18 18 Blood Pressure 117/96 H 104/80 Blood Pressure Mean 103 88 Pulse Ox 97 99 Oxygen Delivery Method Room Air Room Air Positive cachectic General Appearance ED: cachectic Nutritional Appearance: cachectic HEENT Reports moist mucous membranes normocephalic and atraumatic Eyes EOMs intact bilaterally Neck full ROM Chest Wall inspection of chest normal and palpation of chest normal Resp normal respiratory effort and clear to auscultation bilaterally Cardio regular rate and regular rhythm GI non-tender Palpation: soft Extremity Extremity Narrative: Patient with reproducible pain over the left forearm. No deformity, erythema, edema. Hands are cool bilaterally with full range of motion of all digits. Patient follows commands appropriately. Neuro Neuro Narrative: Patient is alert and appropriate during my exam. When I walk in the room she initially has some fine tremors noted to her lower extremities, but those calm during our interview. She is able to move all 4 extremities. She does have reproducible tenderness in the left arm but reports normal sensation. No appreciable speech changes are noted at this time. MDM MDM MDM Narrative Medical decision making narrative: Patient placed on tire fixer. Patient given a small dose of fentanyl for pain control. EKG obtained to evaluate for cardiac arrhythmia/ischemia. Labwor k obtained to evaluate for leukocytosis, anemia, and electrolyte derangement. CTA of the head and neck as well as CT of the chest obtained given her neurologic symptoms. History & Record Review Discussion w/independent historian: EMS personnel, Patient and Family Additional record(s) reviewed:: Prior inpatient record, Prior ED visit and Prior labs Lab Data Attestation: I reviewed the patient's lab results. Labs: Laboratory Results 06/17/23 12:20 WBC 6.7 RBC 3.97 L Hgb 12.3 Hct 37.4 MCV 94.2 MCH 31.0 MCHC 32.9 RDW Std Deviation 43.8 RDW Coeff of Carissa 12.6 Plt Count 217 MPV 8.9 Immature Gran % (Auto) 0.100 Neut % (Auto) 62.4 Lymph % (Auto) 25.8 [place] % (Auto) 10.6 H Eos % (Auto) 0.4 Baso % (Auto) 0.7 Absolute Neuts (auto) 4.2 Absolute Lymphs (auto) 1.73 Nucleated RBC % 0 Sodium 140 Potassium 3.7 Chloride 109 H Carbon Dioxide 28.0 Anion Gap 3 L BUN 16 Creatinine 0.81 Estim Creat Clear Calc 39.79 Est GFR (MDRD) Af Amer 88 Est GFR (MDRD) Non-Af 73 BUN/Creatinine Ratio 19.9 Glucose 87 Calcium 8.9 Troponin I High Sens 6 Radiography Diagnostic Testing: Radiology Impression Chest CTA 06/17/23 12:12 IMPRESSION: Normal CTA chest examination, without a demonstrated pulmonary embolism or arterial dissection. Electronically Signed: Fer Ballard MD at 13:50 EST , Forearm X-Ray 06/17/23 12:12 IMPRESSION: Normal x-ray examination of the radius and ulna. Electronically Signed: Fer Ballard MD at 13:11 EST Reading Location ID and State: [id number] / [place] Tel , Service support , Head/Neck CTA 06/17/23 12:12 IMPRESSION: Normal CTA Head and neck with contrast. Electronically Signed: Fer Ballard MD at 14:05 EST Reading Location ID and State: [id number] / [place] Tel , Service support , Humerus X-Ray 06/17/23 12:12 IMPRESSION: Normal x-ray examination of the humerus. Electronically Signed: Fer Ballard MD at 13:10 EST Reading Location ID and State: [id number] / [place] Tel , Service support , EKG Initial EKG: Attestation: I personally reviewed and interpreted this EKG as follows: Interpretation: Sinus Rhythm (Sinus at 65 with no acute ischemia.) Treatment and Re-Evaluation Narrative: CBC was normal white count 6.7 with a hemoglobin of 12.3. Normal differential. Chemistry studies unremarkable. Troponin is normal at 6. Left humerus and left forearm x-rays per my interpretation feels no evidence of acute bony injury. Radiology interpretation reviewed and agrees. CTA of the head and neck reveals no acute findings and no significant change when compared to prior. CTA of the chest reveals no evidence of PE or dissection. No acute abnormality. On repeat evaluation patient resting more comfortably. Son did state that she has had about 5 episodes of sudden sharp right-sided headache that resolved after just a second or 2. This does sound to be more consistent with muscle spasm. At family's request, I did speak with the patient's primary care physician in [facility]. He has already sent a prescription for Medrol Dosepak to the pharmacy for her and states she does have a history of cervical disc disease. He will also send a prescription for low-dose Flexeril. Patient and son are happy with this plan. Patient be discharged with good return instructions. Discharge Plan Triage Chief Complaint: Upper Extremity Injury ED Provider: Courtney Taylor Dx/Rx/DC Orders Clinical Impression: Cervical radiculopathy Instructions: ED Radiculopathy, Cervical Prescriptions: No Action clopidogrel [Plavix] 75 mg tablet 75 mg PO DAILY memantine .ROUTE BID atorvastatin 40 mg tablet 40 mg PO QHS donepezil 10 mg tablet 10 mg PO QHS mirtazapine 15 mg tablet 15 mg PO QHS cyanocobalamin (vitamin B-12) [Vitamin B-12] 1,000 mcg tablet 1,000 mcg PO DAILY alendronate 70 mg tablet 70 mg PO QWEEK aspirin 81 mg Tablet,Chewable 81 mg PO BREAKFAST Qty: 0 0RF Rx Instructions: for 3 weeks, then stop. meclizine 12.5 mg tablet 12.5 mg PO TID PRN (Reason: dizziness) Qty: 10 0RF Primary Care Provider: [facility] Referrals: [facility] [Other] - 1-2 Weeks NOT,DEFINED [Non-Staff] - Disposition Disposition: Home, Self Care
[2023-06-17 12:29] LABS: Absolute Lymphocyte Count 1.73 X10^3/uL (0.83-4.51); Absolute Neutrophil Count 4.2 X10^3/uL (2.0-7.7); Basophil# 0.05 X10^3/uL; Basophil% 0.7 % (0-1); Eosinophil# 0.03 X10^3/uL; Eosinophils% 0.4 % (0-5); Hematocrit 37.4 % (37-47); Hemoglobin 12.3 g/dL (12.0-15.0); Lymphocyte # 1.73 X10^3/ul (0.83-4.51); Lymphocyte % 25.8 % (19-41); Mean Corp Hgb Conc 32.9 g/dL (32-36); Mean Corpuscular Volume 94.2 fL (81-99); Mean Platelet Vol. 8.9 fl (6.2-12.0); Monocyte# 0.71 X10^3/uL; Monocyte% 10.6 % (0-10); NRBC Flagged by Analyzer 0 % (0-5); Neutrophil # 4.17 X10^3/uL (2.7-7.7); Neutrophil % 62.4 % (47-70); Platelet Count 217 K/mm3 (150-450); RBC Distribution Width CV 12.6 % (11.6-14.6); RBC Distribution Width SD 43.8 fl (35.1-43.9); Red Blood Count 3.97 M/mm3 (4.2-5.4); White Blood Count 6.7 K/mm3 (4.4-11.0)
[2023-06-17] MEDS: fentaNYL 100 MCG/2 ML Ampul 25 MCG IV (12:31)
[2023-06-17] MEDS: 0.9% Normal Saline (1000mL) 1,000 ML 150 ML IV (12:31)
[2023-06-17 12:48] LABS: Anion Gap 3 (5-15); BUN 16 mg/dL (7-18); BUN/Creat Ratio 19.9 RATIO (10-20); Calcium,Total 8.9 mg/dL (8.5-10.1); Chloride 109 mmol/L (98-107); Creatinine, Serum 0.81 mg/dL (0.55-1.02); EST Glomerular Filtration Rate 73 mL/min (>60); Est Glom Filt Rate - Afr Amer 88 mL/min (>60); Estimated Creatinine Clearance 39.79 ml/min; Glucose 87 mg/dL (74-106); Potassium 3.7 mmol/L (3.5-5.1); Sodium Level 140 mmol/L (136-145); Troponin-I HS (w/2H Reflex) 6 pg/mL (3.0-54.0)
[2023-06-17 14:25] LABS: Reflex Troponin-HS? (from REC) Y
[2023-06-17 15:11] VITALS: BP 113/64; PULSE 62; RESP 16; O2SAT 99
== END 2023-06-17 15:12 | disposition home or self-care (01) ==
PROVIDERS: Emergency Provider Emergency Medicine; Visit Provider Emergency Medicine
DX: M54.12 Radiculopathy, cervical region (principal); F03.90 Unspecified dementia, unspecified severity, without behavioral disturbance, psychotic disturbance, mood disturbance, and anxiety; R47.81 Slurred speech; R51.9 Headache, unspecified; F41.9 Anxiety disorder, unspecified
CPT/HCPCS: 70496; 70498; 71275; 73060; 73090; 80048; 84484; 85025; 93005; 96361; 96374; 99285; J7030; Q9967; A4216

== ENCOUNTER → 2025-05-28 | Outpatient (CLI) | payer MEDICARE, BC, SELFPAY ==
--- NOTE | 2025-05-28 15:58 | BI_ITS ---
EXAM: SCRN MAMM (CAD)W/LUIS ARMANDO BILAT DATE: 05/28/2025 CLINICAL HISTORY: F, Age 84 y/o , BILAT BRST SCREEN LUIS ARMANDO ADD-ON Mother with breast cancer. History of possible right lumpectomy/excisional breast biopsy. TECHNIQUE: Procedure Code: [id number] Modality: MG Procedure: SCRN MAMM (CAD)W/LUIS ARMANDO BILAT COMPARISON: No prior studies are available for comparison at this time. FINDINGS: TISSUE DENSITY: There are scattered areas of fibroglandular density. Bilateral Breast Mammographic Findings: No significant masses, calcifications or other abnormalities are identified. Benign-appearing right axillary lymph nodes. No suspicious masses, areas of developing architectural distortion, or suspicious calcifications. BI/SCRN MAMM (CAD)W/LUIS ARMANDO BILAT IMPRESSION: Unremarkable screening mammogram. OVERALL FINAL ASSESSMENT BI-RADS 2: BENIGN RECOMMENDATION: Routine annual follow-up in 1 Year Additional Recommendation none A letter with findings and recommendations will be mailed to the patient. Reading Location: [place]
--- NOTE | 2025-05-28 15:58 | BD_ITS ---
PROCEDURE: DEXA BONE DENSITY STUDY 05/28/2025 REASON FOR EXAM: Concern for osteoporosis. TECHNIQUE: Procedure Code: BDDBD Modality: DX Procedure: DEXA BONE DENSITY STUDY COMPARISON: Reviewed FINDINGS: BMD and T-SCORES Lumbar spine: 0.894 g/cm2, T-score -1.1 Left total hip: 0.778 g/cm2, T-score -1.3 The World Health Organization has defined the following categories based on bone density: Normal bone density: T-score equal to or greater than -1.0 Osteopenia: T-score between -1.0 and -2.5 Osteoporosis: T-score equal to or less than -2.5 FRAX (or Comparable) Fracture Risk Assessment: 10 Year Probability of Fracture: Major Osteoporotic Fracture: 33% Hip Fracture: 22% (Note: FRAX is not to be reported in setting of normal range bone density, osteoporosis on DEXA, known history of osteoporosis, prior osteoporotic hip or vertebral fracture, or for any patient undergoing pharmacological treatment for bone loss.) The National Osteoporosis Foundation (NOF) recommends pharmacological treatment for patients with a FRAX 10-year risk of 3% or higher for a hip fracture, or 20% or higher for a major osteoporotic fracture, to prevent osteoporosis and reduce fracture risk. BD/Dexa Bone Density Study IMPRESSION: OSTEOPENIA. Recommend follow-up as clinically warranted. [facility]
== END | disposition home or self-care (01) ==
LOC: OPBD 15:56
PROVIDERS: PCP Internal Medicine; Referring Provider Internal Medicine; Visit Provider Internal Medicine
DX: Z12.31 Encounter for screening mammogram for malignant neoplasm of breast (principal); Z78.0 Asymptomatic menopausal state
CPT/HCPCS: 77063; 77067; 77080